=== PATIENT | male | born 1965 | race Asian ===

== ENCOUNTER 2016-11-20 10:47 | Emergency (ER) | payer OTHER ==
[2016-11-20 10:53] VITALS: BP 115/75; PULSE 82; TEMP 97.9; BMI 25.8
--- NOTE | 2016-11-20 11:11 | PDOC ---
History of Present Illness - General Chief Complaint: Back Pain Stated Complaint: BACK PAIN Time Seen by Provider: 11/20/16 11:08 History Source: Patient Exam Limitations: No Limitations - History of Present Illness Initial Comments: CHIEF COMPLAINT: 51 y/o afebrile male with no significant PMH c/o low back pain x 3 days. HISTORY OF PRESENT ILLNESS: The patient states he bent down to wash his face a few mornings ago and felt a pulling in the right side of his low back. He states since then his back is tight and hurts with movement. He has only taken 200mg of Advil on one occasion to help with pain. He denies fall, trauma to back, midline back tenderness, f/c, neck pain, saddle anesthesia, bowel/bladder incontinence. Vital signs on arrival are within normal limits. REVIEW OF SYSTEMS: GENERAL/CONSTITUTIONAL: No fever/chills. No weakness. No weight change. HEAD, EYES, EARS, NOSE AND THROAT: No change in vision. No ear pain or discharge. No sore throat. CARDIOVASCULAR: No chest pain or shortness of breath. RESPIRATORY: No cough, wheezing, or hemoptysis. GASTROINTESTINAL: No abd pain, nausea, vomiting, diarrhea. GENITOURINARY: No dysuria, frequency, or change in urination. MUSCULOSKELETAL: No joint or muscle swelling or pain. No neck pain. +right low back pain. SKIN: No rash or easy bruising. NEUROLOGIC: No headache, vertigo, loss of consciousness, or loss of sensation. PHYSICAL EXAM: GENERAL: The patient is awake, alert, and fully oriented, in no acute distress. He is slow moving secondary to back pain. HEAD: Normal with no signs of trauma. ABDOMEN: Soft, non-distended, non-tender even to deep palpation, no hepatomegaly or splenomegaly, no masses. BACK: No midline lumbar spine TTP or step offs. TTP of right lumbar paravertebral muscles. Pain reproduced with lateral and twisting movements of lumbar spine EXTREMITIES: Normal range of motion, no edema. NEUROLOGICAL: Normal speech, normal gait. CN II-XII grossly intact. No saddle anesthesia. PSYCH: Normal mood, normal affect. SKIN: Warm, dry, normal turgor, no rashes or lesions noted. Past History - Past Medical History Allergies/Adverse Reactions: Allergies Allergy/AdvReac Type Severity Reaction Status Date / Time No Known Allergies Allergy Verified 11/20/16 10:51 Home Medications: Ambulatory Orders Ibuprofen [Motrin -] 600 mg PO Q6H #20 tablet 11/20/16 - Psycho/Social/Smoking Cessation Hx Anxiety: No Suicidal Ideation: No Smoking History: Never smoked Have you smoked in the past 12 months: No Information on smoking cessation initiated: No Hx Alcohol Use: No Drug/Substance Use Hx: No Substance Use Type: None *Physical Exam - Vital Signs Last Vital Signs Temp Pulse Resp BP Pulse Ox 97.9 F 82 18 115/75 97 11/20/16 10:51 11/20/16 10:51 11/20/16 10:51 11/20/16 10:51 11/20/16 10:51 Medical Decision Making - Medical Decision Making A/P: 51 y/o male with low back strain. Plan is as follows: 1. PO Ibuprofen The patient was sent an rx for ibuprofen and instructed to take every 6 hours with food for pain. Also suggested he use a heating pad to the affected area and stretch multiple times per day. Suggested he avoid heavy lifting as well. The patient verbalizes understanding of all instructions, has no further questions and is awaiting discharge. *DC/Admit/Observation/Transfer Diagnosis at time of Disposition: Low back strain Qualifiers: Encounter type: initial encounter Qualified Code(s): S39.012A - Strain of muscle, fascia and tendon of lower back, initial encounter - Discharge Dispostion Disposition: HOME Condition at time of disposition: Good - Prescriptions Prescriptions: Ibuprofen [Motrin -] 600 mg PO Q6H #20 tablet - Referrals Referrals: Alex Fitzpatrick MD [Primary Care Provider] - - Patient Instructions Printed Discharge Instructions: DI for Back Strain or Sprain Additional Instructions: Discharge Instructions: -Take 600mg of Ibuprofen every 6 hours with food for pain -Use heating pad to your back to help with pain -Stretch your back multiple times per day -Avoid heavy lifting -Return to the ER with any worsening or concerning symptoms. - Post Discharge Activity Work/School Note: Back to Work
[2016-11-20] MEDS ORDERED: IBUPROFEN 600 MG TABLET (FP) PO ONE ×2 (11:28→11:32)
== END 2016-11-20 11:35 | disposition home or self-care (01) ==
LOC: JERFT 10:47
DX: S39.012A Strain of muscle, fascia and tendon of lower back, initial encounter (principal); X50.0XXA Overexertion from strenuous movement or load, initial encounter; X50.9XXA Other and unspecified overexertion or strenuous movements or postures, initial encounter; Y93.E8 Activity, other personal hygiene; Y92.89 Other specified places as the place of occurrence of the external cause
CPT/HCPCS: 99281-25